=== PATIENT | male | born 1980 | race Two or more races ===

== ENCOUNTER 2020-10-03 21:20 | Emergency (ER) | payer BC ==
[2020-10-03] MEDS ORDERED: Ibuprofen 600 MG Tab PO ONE (22:49)
--- NOTE | 2020-10-03 22:54 | EDM.PDOC ---
ED HPI GENERAL MEDICAL PROBLEM - General Chief Complaint: Respiratory Problem Stated Complaint: ACHEY/SORE THROAT/COUGH Time Seen by Provider: 10/03/20 21:38 Source of Information: Reports: Patient History Limitations: Reports: No Limitations - History of Present Illness INITIAL COMMENTS - FREE TEXT/NARRATIVE: Mr. Castro is a very pleasant 40-year-old gentleman who now presents to the ED after waking up this morning with generalized body aches, a subjective fever with chills, a headache felt behind his eyes and both ears, a cough productive of greenish sputum, and sharp lower abdominal pain. No urinary symptoms. He states that he has been taking DayQuil all day. No prior similar symptoms. Here in the ED, the patient is found to be hemodynamically stable, afebrile, saturating 100% on room air. He appears to be comfortable, no acute distress. Prior to this morning, the patient denies having a recent fever, chills, sore throat, ear pain, nasal or sinus congestion, cough, dyspnea, chest pain, palpitations, nausea, vomiting, constipation, diarrhea, abdominal pain, urinary symptoms, recent weight gain or weight loss, recent bloody bowel movements or black bowel movements, recent joint aches, headaches, or rashes. The patient's PCP and [facility] [employer] are in [place]. He has not received a COVID vaccination. Headache Pain Score (Numeric/FACES): 7 - Related Data Allergies Allergy/AdvReac Type Severity Reaction Status Date / Time No Known Allergies Allergy Verified 10/03/20 21:42 Home Meds: Home Meds Levothyroxine Sodium [Synthroid] 1 tab PO DAILY 10/03/20 [History] Sulfamethoxazole/Trimethoprim [Bactrim Ds Tablet] 1 tab PO BID 10/03/20 [Histo ry] Past Medical History Cardiovascular History: Reports: High Cholesterol (untreated) Genitourinary History: Reports: Renal Calculus Endocrine/Metabolic History: Reports: Hypothyroidism Dermatologic History: Reports: Other (See Below) (Acne - on chronic Bactrim) Social & Family History - Tobacco Use Tobacco Use Status *Q: Never Tobacco User Second Hand Smoke Exposure: No - Caffeine Use Caffeine Use: Reports: Coffee - Alcohol Use Alcohol Use History: Yes Alcohol Use Frequency: Socially - Recreational Drug Use Recreational Drug Use: No - Living Situation & Occupation Living situation: Reports: , with Spouse, with Family (1 daughter) Occupation: Employed ([employer]) ED ROS GENERAL - Review of Systems Review Of Systems: Comprehensive ROS is negative, except as noted in HPI. ED EXAM, GENERAL - Physical Exam Exam: See Below Exam Limited By: No Limitations General Appearance: Alert, WD/WN, No Apparent Distress Eye Exam: Bilateral Eye: EOMI, Normal Inspection Ears: Normal External Exam, Hearing Grossly Normal Nose: Normal Inspection Throat/Mouth: Normal Inspection, Normal Lips, Normal Voice, No Airway Compromise Head: Atraumatic, Normocephalic Neck: Normal Inspection, Full Range of Motion Respiratory/Chest: No Respiratory Distress, Lungs Clear, Normal Breath Sounds, No Accessory Muscle Use. No: Decreased Breath Sounds, Crackles, Rhonchi, Wheezing, Stridor, Prolonged Expiration Cardiovascular: Normal Peripheral Pulses, Regular Rate, Rhythm, No Edema, No Gallop, No JVD, No Murmur, No Rub Peripheral Pulses: 3+: Radial (L), Radial (R) GI/Abdominal: Normal Bowel Sounds, Soft, No Organomegaly, No Distention, No Abnormal Bruit, No Mass, Tender (Mild, left lower quadrant only. Nontender elsewhere.) Back Exam: Normal Inspection, Full Range of Motion, CVA Tenderness (R) (mild). No: CVA Tenderness (L) Extremities: Normal Inspection, Normal Range of Motion, No Pedal Edema, Normal C apillary Refill Neurological: Alert, Oriented, Normal Cognition, No Motor/Sensory Deficits Psychiatric: Normal Affect Skin Exam: Warm, Dry, Intact, Normal Color, No Rash Course - Vital Signs Last Recorded V/S: Last Vital Signs Temp 36.9 C 10/03/20 21:38 Pulse 95 10/03/20 21:38 Resp 20 10/03/20 21:38 BP 123/74 10/03/20 21:38 Pulse Ox 100 10/03/20 21:38 - Orders/Labs/Meds Orders: Active Orders 24 hr Category Date Time Status Chest 2V [CR] Stat Exams 10/03/20 22:45 Taken BLOOD CULTURE [MREF] Stat Lab 10/03/20 23:05 Received BLOOD CULTURE [MREF] Stat Lab 10/03/20 23:15 Received UA W/MICROSCOPIC [URIN] Stat Lab 10/03/20 22:45 Ordered Sodium Chloride 0.9% [Normal Saline] 1,000 ml Med 10/03/20 23:00 Active IV ASDIRECTED Blood Culture x2 Reflex Set [OM.PC] Stat Oth 10/03/20 22:47 Ordered Medication Orders Sodium Chloride (Normal Saline) 1,000 mls @ 150 mls/hr IV ASDIRECTED RAMIN Last Admin: 10/03/20 23:05 Dose: 150 mls/hr Documented by: LEISA Labs: Laboratory Tests 10/03/20 10/03/20 10/03/20 Range/Units 23:00 23:05 23:05 WBC 4.51 (4.23-9.07) K/mm3 RBC 4.22 L (4.63-6.08) M/mm3 Hgb 13.4 L (13.7-17.5) gm/dl Hct 39.5 L (40.1-51.0) % MCV 93.6 H (79.0-92.2) fl MCH 31.8 (25.7-32.2) pg MCHC 33.9 (32.2-35.5) g/dl RDW Std Deviation 43.6 (35.1-43.9) fL Plt Count 250 (163-337) K/mm3 MPV 9.5 (9.4-12.3) fl Neutrophils % (Manual) 48 (40-60) % Band Neutrophils % 6 (0-10) % Lymphocytes % (Manual) 25 (20-40) % Atypical Lymphs % 0 % Monocytes % (Manual) 20 H (2-10) % Eosinophils % (Manual) 0 L (0.8-7.0) % Basophils % (Manual) 1 (0.2-1.2) Platelet Estimate Adequate RBC Morph Comment Normal D-Dimer, Quantitative (0.19-0.50) mg/L Sodium 144 (136-145) mEq/L Potassium 3.7 (3.5-5.1) mEq/L Chloride 109 H (98-107) mEq/L Carbon Dioxide 24 (21-32) mEq/L Anion Gap 14.7 (5-15) BUN 14 (7-18) mg/dL Creatinine 1.2 (0.7-1.3) mg/dL Est Cr Clr Drug Dosing 69.89 mL/min Estimated GFR (MDRD) > 60 (>60) mL/min BUN/Creatinine Ratio 11.7 L (14-18) Glucose 89 (70-99) mg/dL Lactic Acid (0.4-2.0) mmol/L Calcium 8.2 L (8.5-10.1) mg/dL Magnesium 2.2 (1.8-2.4) mg/dL Ferritin (26-388) ng/ml Total Bilirubin 0.3 (0.2-1.0) mg/dL AST 47 H (15-37) U/L ALT 75 H (16-63) U/L Alkaline Phosphatase 106 (46-116) U/L Lactate Dehydrogenase 261 H (85-227) U/L C-Reactive Protein 1.9 H* (<1.0) mg/dL Total Protein 7.0 (6.4-8.2) g/dl Albumin 3.9 (3.4-5.0) g/dl Globulin 3.1 gm/dL Albumin/Globulin Ratio 1.3 (1-2) SARS-CoV-2 RNA (MARYLOU) Positive H (NEGATIVE) 10/03/20 10/03/20 10/03/20 Range/Units 23:05 23:05 23:05 WBC (4.23-9.07) K/mm3 RBC (4.63-6.08) M/mm3 Hgb (13.7-17.5) gm/dl Hct (40.1-51.0) % MCV (79.0-92.2) fl MCH (25.7-32.2) pg MCHC (32.2-35.5) g/dl RDW Std Deviation (35.1-43.9) fL Plt Count (163-337) K/mm3 MPV (9.4-12.3) fl Neutrophils % (Manual) (40-60) % Band Neutrophils % (0-10) % Lymphocytes % (Manual) (20-40) % Atypical Lymphs % % Monocytes % (Manual) (2-10) % Eosinophils % (Manual) (0.8-7.0) % Basophils % (Manual) (0.2-1.2) Platelet Estimate RBC Morph Comment D-Dimer, Quantitative 0.60 H (0.19-0.50) mg/L Sodium (136-145) mEq/L Potassium (3.5-5.1) mEq/L Chloride (98-107) mEq/L Carbon Dioxide (21-32) mEq/L Anion Gap (5-15) BUN (7-18) mg/dL Creatinine (0.7-1.3) mg/dL Est Cr Clr Drug Dosing mL/min Estimated GFR (MDRD) (>60) mL/min BUN/Creatinine Ratio (14-18) Glucose (70-99) mg/dL Lactic Acid 0.7 (0.4-2.0) mmol/L Calcium (8.5-10.1) mg/dL Magnesium (1.8-2.4) mg/dL Ferritin 319 (26-388) ng/ml Total Bilirubin (0.2-1.0) mg/dL AST (15-37) U/L ALT (16-63) U/L Alkaline Phosphatase (46-116) U/L Lactate Dehydrogenase (85-227) U/L C-Reactive Protein (<1.0) mg/dL Total Protein (6.4-8.2) g/dl Albumin (3.4-5.0) g/dl Globulin gm/dL Albumin/Globulin Ratio (1-2) SARS-CoV-2 RNA (MARYLOU) (NEGATIVE) Meds: Medications Generic Name Dose Route Start Last Admin Trade Name Freq PRN Reason Stop Dose Admin Sodium Chloride 1,000 mls @ 150 mls/hr 10/03/20 23:00 10/03/20 23:05 Normal Saline IV 150 mls/hr ASDIRECTED RAMIN Administration Discontinued Medications Generic Name Dose Route Start Last Admin Trade Name Freq PRN Reason Stop Dose Admin Ibuprofen 600 mg 10/03/20 22:49 10/03/20 23:05 Ibuprofen 600 Mg Tab PO 10/03/20 22:50 600 mg ONETIME ONE Administration - Re-Assessments/Exams Free Text/Narrative Re-Assessment/Exam: 10/03/20 22:50 As above, the patient woke this morning with generalized body aches, a headache, lower abdominal pain, primarily in the left lower quadrant, a cough productive of greenish sputum, and subjective fever with chills. His symptoms have persisted despite his taking OTC DayQuil all day. He is afebrile here in the ED , with an oxygen saturation of 100% on room air. His physical exam is remarkable for very mild left lower quadrant abdominal tenderness and mild right CVA tenderness, and he feels warm to the touch despite having no fever. His examination is otherwise unremarkable. I have ordered a work-up that includes numerous blood tests, 2 sets of blood cultures, a swab for the SARS-CoV-2 virus, a urinalysis, and a chest x-ray. In the meantime, the patient will be treated with some IV fluid and ibuprofen. 10/03/20 23:38 Two-view chest radiograph appears to be grossly normal. The cardiac silhouette is within normal limits. No pulmonary vascular congestion. No pleural effusions. No focal infiltrate. No pneumothorax. Formal read per the Radiologist pending. The patient's swab for the SARS-CoV-2 virus is positive. 10/04/20 02:54 The patient's CBC is remarkable for an H/H slightly depressed at 13.4/39.5, with the remainder of his CBC being unremarkable. His CMP is remarkable for an AST/ALT slightly elevated at 47/75, respectively, with remainder of his CMP being unremarkable. His magnesium level is within normal limits at 2.2. His lactic acid level is within normal limits at 0.7. His LDH is modestly elevated at 261. His ferritin is within normal limits at 319. His CRP is mildly elevated at 1.9. His D-dimer is slightly elevated at 0.60. The patient has not yet provided a urine sample for urinalysis. 10/04/20 03:11 Is also discussed with the patient. As above, the patient's symptoms are explained by COVID-19. His BMI is 30.6, making him a candidate to receive an infusion of Regen-Cov. The patient would like to receive a COVID-19 vaccination once he has recovered from his current illness, however, therefore Regen-Cov is not recommended, as it may impair his response to the vaccination. The patient elected to NOT receive Regen-Cov at this time. I will discharge him home with the recommendation that he strictly isolate for 10 days, then get retested before breaking isolation. I will write a note for him to be off work for that time. Departure - Departure Time of Disposition: 03:14 Disposition: Home, Self-Care 01 Condition: Good Clinical Impression: COVID-19 - Discharge Information *PRESCRIPTION DRUG MONITORING PROGRAM REVIEWED*: Not Applicable *COPY OF PRESCRIPTION DRUG MONITORING REPORT IN PATIENT [place]: Not Applicable Referrals: PCP,Not In Area [Primary Care Provider] - Forms: ED Department Discharge, ED Return to Work/School Form Additional Instructions: You were seen in the emergency room after developing body aches, chills, headache, cough, and lower abdominal pain. Work-up in the ER included numerous blood tests, 2 sets of blood cultures, a swab for the SARS-CoV-2 virus, and a chest x-ray. Your swab for the SARS-CoV-2 virus returned positive, indicating that you have COVID-19. You have elected to not receive an infusion of the monoclonal antibodies Regen- Cov. You may take [id number] ibuprofen, 3 tablets (600 mg) up to every 8 hours, with food, as needed for discomfort. As discussed, it is imperative that you strictly isolate for 10 days. At that time, you should get retested for COVID-19. If you are still positive, do not return to work until you tested negative. A note to be off work through 10/15/2020 has been provided to you. If any other problems, please do not hesitate to return to the ER. Sepsis Event Note (ED) - Evaluation Sepsis Screening Result: No Definite Risk - Focused Exam Vital Signs: Vital Signs Temp Pulse Resp BP Pulse Ox 10/03/20 21:38 36.9 C 95 20 123/74 100 - My Orders Last 24 Hours: My Active Orders 10/03/20 22:45 Chest 2V [CR] Stat UA W/MICROSCOPIC [URIN] Stat 10/03/20 22:47 Blood Culture x2 Reflex Set [OM.PC] Stat 10/03/20 23:00 Sodium Chloride 0.9% [Normal Saline] 1,000 ml IV ASDIRECTED 10/03/20 23:05 BLOOD CULTURE [MREF] Stat 10/03/20 23:15 BLOOD CULTURE [MREF] Stat - Assessment/Plan Last 24 Hours: My Active Orders 10/03/20 22:45 Chest 2V [CR] Stat UA W/MICROSCOPIC [URIN] Stat 10/03/20 22:47 Blood Culture x2 Reflex Set [OM.PC] Stat 10/03/20 23:00 Sodium Chloride 0.9% [Normal Saline] 1,000 ml IV ASDIRECTED 10/03/20 23:05 BLOOD CULTURE [MREF] Stat 10/03/20 23:15 BLOOD CULTURE [MREF] Stat
[2020-10-03] MEDS ORDERED: Sodium Chloride 0.9% 1,000 ML IV SCH (23:00)
--- NOTE | 2020-10-04 09:31 | CR ---
Chest: PA and lateral views of the chest were obtained. Comparison: No prior chest imaging is available. Heart size and mediastinum are normal. Lungs are clear with no acute parenchymal change. Bony structures are within normal limits for the patient's age. Impression: 1. Nothing acute is seen on 2 view chest x-ray. Diagnostic code #1
== END 2020-10-04 03:50 | disposition home or self-care (01) ==
LOC: JD.ED 21:20
DX: U07.1 COVID-19 (principal); E03.9 Hypothyroidism, unspecified; Z79.899 Other long term (current) drug therapy
CPT/HCPCS: 36415; 71046; 71046-26; 80053; 82728; 83605; 83615; 83735; 85007; 85027; 85379; 86140; 87040; 99283; 99284-25; A9270-GY; J7030; U0002